=== PATIENT | female | born 1995 | race Caucasian/White ===

== ENCOUNTER 2016-11-19 15:10 | Emergency (ER) | payer BC, MEDICAID, OTHER ==
[~2016-11-19] VITALS: Ht 162.6 cm; Wt 74.3 kg
[~2016-11-19 15:10] MED LIST: IBUP800T23 PO
[2016-11-19 15:16] VITALS: BP 119/76; PULSE 80; RESP 16; TEMP 97.5; O2SAT 100
[2016-11-19 16:03] LABS: BLOOD, URINE NEG (NEG); GLUCOSE,URINE NEG (NEG); KETONE, URINE TRACE mg/dL (NEG); NITRITE,URINE NEG (NEG)
--- NOTE | 2016-11-19 16:10 | PD ---
HPI . Suprapubic pain Chief Complaint: Abdominal Pain Time Seen by Provider: 15:27 Travel History International Travel<30 days: No Contact w/Intl Traveler<30days: No Traveled to known affect area: No History of Present Illness HPI Patient presents with a 3 week history of suprapubic pain. She describes it as cramping similar to menstrual cramps. She rates at 4/10. She reports associated dyspareunia. She denies discharge. Urination exacerbates her symptoms. However, she does not have dysuria, frequency or urgency. [facility] Past Medical History Medical History: Denies Significant Hx Immunizations Current: Yes Tetanus Vaccination: Unknown Influenza Vaccination: No ?: Unknown LMP: 11/11/2016 Past Surgical History Surgical History: No Previous Surgery Social History Alcohol Use: No Tobacco Use: No Substance Use: Yes (MJ) Allergies-Medications (Allergen,Severity, Reaction): Coded Allergies: Codeine (Verified Adverse Reaction, Severe, Nausea/Vomiting, 11/19/16) Uncoded Allergies: SOME DETERGENTS (Adverse Reaction, Severe, 02/17/12) Reported Meds & Prescriptions Reported Meds & Active Scripts Active Ibuprofen 800 Mg Tab 800 Mg PO Q8 PRN Review of Systems Except as stated in HPI: all other systems reviewed are Neg General / Constitutional: No: Fever, Chills Gastrointestinal: Positive: Abdominal Pain, No: Nausea, Vomiting, Diarrhea Genitourinary: Positive: Pelvic Pain, Dyspareunia, No: Urgency, Frequency, Dysuria, Discharge, Vaginal Bleeding Physical Exam Narrative GENERAL: Awake and alert and in no acute distress. SKIN: Warm and dry. HEAD: Atraumatic. Normocephalic. EYES: Pupils equal and round. ENT: No nasal bleeding or discharge. Mucous membranes pink and moist. NECK: Trachea midline. CARDIOVASCULAR: Regular rate and rhythm. RESPIRATORY: No accessory muscle use. GASTROINTESTINAL: Abdomen soft. Mild suprapubic tenderness. No guarding or rebound. Nondistended. : Normal female external genitalia. Yellowish discharge from the cervical os. Os is closed. There is no cervical motion tenderness. No adnexal tenderness. She has some mild tenderness over the uterus. MUSCULOSKELETAL: No obvious deformities. No edema. NEUROLOGICAL: Awake and alert. No obvious cranial nerve deficits. Motor grossly within normal limits. Normal speech. PSYCHIATRIC: Appropriate mood and affect; insight and judgment normal. Data Data Last Documented VS Vital Signs Date Time Temp Pulse Resp B/P Pulse Ox O2 Delivery O2 Flow Rate FiO2 11/19/16 15:16 97.5 80 16 119/76 100 Orders Gc And Chlamydia Pcr (11/19/16 15:27) Wet Prep Profile (11/19/16 15:27) Ua Includes Microscopic (11/19/16 15:27) Ed Urine Pregnancytest Poc (11/19/16 15:27) Us Pelvis (Ques Pr/Ect)W Trans (11/19/16 15:50) Beta Hcg (Quant/Titer) (11/19/16 15:50) Labs Laboratory Tests Test 11/19/16 11/19/16 15:50 16:35 Urine Collection Type CLEAN CATCH Urine Color YELLOW Urine Turbidity CLEAR Urine pH 7.0 Urine Specific [place] 1.025 Urine Protein TRACE mg/dL Urine Glucose (UA) NEG mg/dL Urine Ketones TRACE mg/dL Urine Occult Blood NEG Urine Nitrite NEG Urine Bilirubin NEG Urine Leukocyte Esterase NEG Urine RBC 0-3 /hpf Urine WBC 0-2 /hpf Urine Squamous Epithelial 0-5 /hpf Cells Urine Collection Time 15:50 Clue Cells (Wet Prep) NONE SEEN Vaginal Trichomonas (Wet Prep) NONE SEEN Vaginal Yeast (Wet Prep) NONE SEEN Human Chorionic Gonadotropin, 366 MIU/ML Quant MDM Medical Decision Making Medical Screen Exam Complete: Yes Emergency Medical Condition: Yes Differential Diagnosis Differential diagnosis of pelvic pain includes but is not limited to UTI, PID, ectopic , spontaneous AB, constipation, viral illness Narrative Course Patient presents complaining with suprapubic pain for the last 3 weeks. Her bedside test is positive. A quantitative hCG and pelvic ultrasound have subsequently been ordered. UA and wet prep are negative. Quantitative hCG is only 366. Ultrasound would not be helpful at this point. Diagnosis Primary Impression: Pelvic pain Additional Impression: Qualified Code: Z3A.01 - Less than 8 weeks gestation of Additional Instructions: Follow-up in 2 days for repeat blood test Disposition: 01 DISCHARGE HOME Condition: Stable Janette Mendoza MD November 19, 2016 16:10
[2016-11-19 16:12] LABS: METHOD OF COLLECTION CLEAN CATCH; URINE COLOR YELLOW (YELLW/STRAW)
[2016-11-19 16:13] LABS: RBC, URINE 0-3 /hpf (0-3); SQUAMOUS EPITHELIAL CELL URINE 0-5 /hpf (0-5); WBC, URINE 0-2 /hpf (0-5)
[2016-11-19 17:02] LABS: BETA HCG QUANT 366 MIU/ML (0-5)
[2016-11-19 17:20] VITALS: BP 122/76; PULSE 88; RESP 16; O2SAT 98
[2016-11-19 18:46] LABS: CHLAMYDIA PCR NOT DETECTED (NOT DETECT); NEISSERIA PCR NOT DETECTED (NOT DETECT)
--- NOTE | 2016-11-19 19:05 | RADHPO ---
EXAM DATE/TIME: 11/19/2016 17:28 [facility] COMPARISON: No previous studies available for comparison. INDICATIONS : Pelvic pain with . LAB(S): Beta-hC MEDICAL HISTORY : . Plan B x 1 month ago. SURGICAL HISTORY : None. ENCOUNTER: Initial ACUITY: 1 day PAIN SCORE: 6/10 LOCATION: Bilateral pelvis MEASUREMENTS: UTERUS: 8.0 x 4.9 x 3.6 cm ENDOMETRIAL STRIPE: 5 mm RIGHT OVARY: 3.5 x 3.0 x 2.4 cm LEFT OVARY: 2.5 x 2.8 x 1.9 cm FREE FLUID: Yes Trace in right adnexa and posterior cul de sac. CROWN RUMP LENGTH: Non visualized. = WKS DAYS FHR: Non visualized. BPM FINDINGS: The uterus is empty in spite of the beta at 366. Right ovary is unremarkable The left ovary is unremarkable. Trace free fluid is evident. Yolk sac is not visualized. Small cervical nabothian cysts are noted. CONCLUSION: Empty uterus with trace free fluid in cul-de-sac in the beta of 366. Followup is suggested. Ectopic cannot be excluded.. Hunter Ballesteros MD FACR on November 19, 2016 at 19:00 Board Certified Radiologist. This report was verified electronically.
[2016-11-19 19:15] VITALS: BP 122/78
[2016-11-19 19:20] VITALS: BP 122/78; PULSE 88; RESP 16; O2SAT 98
== END 2016-11-19 19:15 | disposition home or self-care (01) ==
LOC: PHED 15:10
DX: O26.891 Other specified pregnancy related conditions, first trimester (principal); O99.321 Drug use complicating pregnancy, first trimester; R10.2 Pelvic and perineal pain; Z3A.01 Less than 8 weeks gestation of pregnancy
CPT/HCPCS: 76700; 76817; 81001; 84702; 84703; 87210; 87491; 87591

== ENCOUNTER 2016-11-21 11:50 | Emergency (ER) | payer MEDICAID, OTHER ==
[~2016-11-21] VITALS: Ht 162.6 cm; Wt 75.9 kg
[2016-11-21 11:51] VITALS: BP 117/64; PULSE 85; RESP 17; TEMP 98.5; O2SAT 100
[2016-11-21 12:41] LABS: BETA HCG QUANT 280 MIU/ML (0-5)
--- NOTE | 2016-11-21 13:05 | PD ---
HPI Chief Complaint: Related Problem Time Seen by Provider: 12:00 Travel History International Travel<30 days: No Contact w/Intl Traveler<30days: No Traveled to known affect area: No History of Present Illness HPI 20-year-old female presents to the emergency department for repeat hCG. She was evaluated in the emergency room on 11/19/16 for evaluation of pelvic pain. At that visit her urine was positive her hCG was 366. She reports she had 2 menstrual cycles in the month of October. According to the EMR her pelvic exam was essentially normal she had no cervical motion tenderness and had mild uterine tenderness. Her wet prep was negative. Her UA was negative. She was diagnosed with pelvic pain and instructed to return for repeat blood work today. She denies any complaint today's visit. [facility] Past Medical History Medical History: Denies Significant Hx Immunizations Current: Yes Tetanus Vaccination: > 5 Years Influenza Vaccination: No ?: Unknown LMP: ENDED 4 DAYS AGO Past Surgical History Surgical History: No Previous Surgery Social History Alcohol Use: No Tobacco Use: No Substance Use: Yes () Allergies-Medications (Allergen,Severity, Reaction): Coded Allergies: Codeine (Verified Adverse Reaction, Severe, Nausea/Vomiting, 11/21/16) Uncoded Allergies: SOME DETERGENTS (Adverse Reaction, Severe, 02/17/12) Reported Meds & Prescriptions Reported Meds & Active Scripts Active No Active Prescriptions or Reported Medications Review of Systems Except as stated in HPI: all other systems reviewed are Neg Physical Exam Narrative GENERAL: Well-nourished, well-developed patient. SKIN: Focused skin assessment warm/dry. HEAD: Normocephalic. EYES: No scleral icterus. No injection or drainage. NECK: Supple, trachea midline. No JVD or lymphadenopathy. CARDIOVASCULAR: Regular rate and rhythm without murmurs, gallops, or rubs. RESPIRATORY: Breath sounds equal bilaterally. No accessory muscle use. GASTROINTESTINAL: Abdomen soft, non-tender, nondistended. MUSCULOSKELETAL: No cyanosis, or edema. BACK: Nontender without obvious deformity. No CVA tenderness. Data Data Last Documented VS Vital Signs Date Time Temp Pulse Resp B/P Pulse Ox O2 Delivery O2 Flow Rate FiO2 11/21/16 11:51 98.5 85 17 117/64 100 Orders Beta Hcg (Quant/Titer) (11/21/16 12:12) Labs Laboratory Tests Test 11/21/16 12:15 Human Chorionic Gonadotropin, 280 MIU/ML Quant MDM Medical Decision Making Medical Screen Exam Complete: Yes Emergency Medical Condition: Yes Differential Diagnosis Ectopic ,Threatened miscarriage reevaluation Narrative Course 20-year-old female presents emergency department for repeat serum hCG. She was evaluated in the emergency room on 11/19/16 for evaluation of pelvic pain and . Her hCG at that point was 366. Her hCG today is 280. She has no complaint of abdominal pain no vaginal bleeding. Discussed case with Dr. HARMAN attending physician she agrees to patient's treatment plan and return in 2 days for repeat hCG since patient has no established [employer] for follow-up. Discussed at length with patient signs and symptoms of ectopic and the need for reevaluation in 2 days. She was instructed to return for another serum hCG. She was instructed to return prior should she develop abdominal pain , vaginal bleeding or any new complaint. Patient verbalizes understanding and confirms she will return should she develop any new symptoms. Diagnosis Primary Impression: Pelvic pain Referrals: Internal Medicine Physician Assistant Additional Instructions: Return to the emergency Department in 2 days for repeat hCG. Return prior if he develops abdominal pain or vaginal bleeding. Or any new or worsening symptom. Scripts No Active Prescriptions or Reported Meds Disposition: 01 DISCHARGE HOME Condition: Stable Crissy Ren November 21, 2016 13:05
== END 2016-11-21 13:27 | disposition home or self-care (01) ==
LOC: PHEFT 11:50
DX: R10.2 Pelvic and perineal pain (principal); Z88.5 Allergy status to narcotic agent
CPT/HCPCS: 84702; 99283

== ENCOUNTER 2016-11-23 13:48 | Emergency (ER) | payer MEDICAID, OTHER ==
[~2016-11-23] VITALS: Ht 162.6 cm; Wt 74.9 kg
[2016-11-23 13:49] VITALS: BP 96/68; PULSE 91; RESP 16; TEMP 97.5; O2SAT 98
--- NOTE | 2016-11-23 14:59 | PD ---
HPI Chief Complaint: Abnormal Results Time Seen by Provider: 14:50 Travel History International Travel<30 days: No Contact w/Intl Traveler<30days: No Traveled to known affect area: No History of Present Illness HPI 21-year-old female presents to the emergency room for evaluation of right lower quadrant pain for 4 weeks and repeat beta hCG. Patient came to the emergency room 4 days ago (11/19/16) for evaluation of RLQ abdominal pain at that time and was found to be in very early but ultrasound would not be of use. Pain fluctuates in severity but is constant. It feels like cramping and is exacerbated with urinating. Patient states it initially started after her normal 5 day period at the beginning of October but never went away; she had a second period at the end of October which ended about 5 days ago. She has been taking Motrin which helps a little bit. After finding out she was , she started taking Tylenol which doesn't help as much. She came to the emergency room 2 days after finding out she was (11/21/16) for repeat beta hCG which was declining at that time. She denies fever, chills, urgency, frequency, dysuria, vomiting, and diarrhea. Reports occasional nausea. She is not currently bleeding. PFSH Past Medical History Medical History: Denies Significant Hx Immunizations Current: Yes Tetanus Vaccination: < 5 Years Influenza Vaccination: No ?: LMP: 11/12/16 Past Surgical History Surgical History: No Previous Surgery Social History Alcohol Use: No Tobacco Use: No Substance Use: Yes (MJ) Allergies-Medications (Allergen,Severity, Reaction): Coded Allergies: Codeine (Verified Adverse Reaction, Severe, Nausea/Vomiting, 11/23/16) Uncoded Allergies: SOME DETERGENTS (Adverse Reaction, Severe, 11/23/16) . Reported Meds & Prescriptions Reported Meds & Active Scripts Active Tramadol (Tramadol HCl) 50 Mg Tab 50 Mg PO Q8H PRN Review of Systems Except as stated in HPI: all other systems reviewed are Neg Physical Exam Narrative GENERAL: Well-nourished, well-developed female in no acute distress. Afebrile. Ambulatory. SKIN: Focused skin assessment warm/dry. HEAD: Normocephalic. EYES: No scleral icterus. No injection or drainage. NECK: Supple, trachea midline. No JVD or lymphadenopathy. CARDIOVASCULAR: Regular rate and rhythm without murmurs, gallops, or rubs. RESPIRATORY: Breath sounds equal bilaterally. No accessory muscle use. GASTROINTESTINAL: Abdomen soft, nondistended. Positive bowel sounds. No hepato -splenomegaly, or palpable masses. No guarding. No CVA tenderness. Mild tenderness to palpation of the right lower quadrant region. Data Data Last Documented VS Vital Signs Date Time Temp Pulse Resp B/P Pulse Ox O2 Delivery O2 Flow Rate FiO2 11/23/16 20:23 Room Air 11/23/16 20:22 85 16 117/66 99 11/23/16 13:49 97.5 Orders Beta Hcg (Quant/Titer) (11/23/16 14:22) Complete Blood Count With Diff (11/23/16 15:20) Comprehensive Metabolic Panel (11/23/16 15:20) Urinalysis - C+S If Indicated (11/23/16 15:20) Ct Abd/Pel W Iv Contrast(Rout) (11/23/16 15:20) Iv Access Insert/Monitor (11/23/16 15:20) Ecg Monitoring (11/23/16 15:20) Oximetry (11/23/16 15:20) Sodium Chloride 0.9% Flush (Ns Flush) (11/23/16 15:30) Iohexol 350 Inj (Omnipaque 350 Inj) (11/23/16 15:59) Type And Screen (11/23/16 17:29) Us Pelvis (Ques Pr/Ect)W Trans (11/23/16 ) Labs Laboratory Tests Test 11/23/16 11/23/16 11/23/16 14:30 15:50 18:30 Human Chorionic Gonadotropin, 206 MIU/ML Quant White Blood Count 6.9 TH/MM3 Red Blood Count 4.27 MIL/MM3 Hemoglobin 11.0 GM/DL Hematocrit 34.3 % Mean Corpuscular Volume 80.3 FL Mean Corpuscular Hemoglobin 25.8 PG Mean Corpuscular Hemoglobin 32.1 % Concent Red Cell Distribution Width 14.6 % Platelet Count 496 TH/MM3 Mean Platelet Volume 7.9 FL Neutrophils (%) (Auto) 65.0 % Lymphocytes (%) (Auto) 22.7 % Monocytes (%) (Auto) 9.8 % Eosinophils (%) (Auto) 2.0 % Basophils (%) (Auto) 0.5 % Neutrophils # (Auto) 4.5 TH/MM3 Lymphocytes # (Auto) 1.6 TH/MM3 Monocytes # (Auto) 0.7 TH/MM3 Eosinophils # (Auto) 0.1 TH/MM3 Basophils # (Auto) 0.0 TH/MM3 CBC Comment DIFF FINAL Differential Comment Urine Color YELLOW Urine Turbidity CLEAR Urine pH 7.0 Urine Specific [place] 1.021 Urine Protein NEG mg/dL Urine Glucose (UA) NEG mg/dL Urine Ketones NEG mg/dL Urine Occult Blood NEG Urine Nitrite NEG Urine Bilirubin NEG Urine Leukocyte Esterase NEG Urine Squamous Epithelial 0-5 /hpf Cells Microscopic Urinalysis Comment CULT NOT INDICATED Sodium Level 142 MEQ/L Potassium Level 3.8 MEQ/L Chloride Level 106 MEQ/L Carbon Dioxide Level 30.5 MEQ/L Anion Gap 6 MEQ/L Blood Urea Nitrogen 11 MG/DL Creatinine 0.74 MG/DL Estimat Glomerular Filtration 100 ML/MIN Rate Random Glucose 73 MG/DL Calcium Level 9.0 MG/DL Total Bilirubin 0.4 MG/DL Aspartate Amino Transf 27 U/L (AST/SGOT) Alanine Aminotransferase 52 U/L (ALT/SGPT) Alkaline Phosphatase 42 U/L Total Protein 7.6 GM/DL Albumin 3.8 GM/DL Blood Type AB POSITIVE Antibody Screen NEGATIVE Blood Bank Comment MDM Medical Decision Making Medical Screen Exam Complete: Yes Emergency Medical Condition: Yes Medical Record Reviewed: Yes Differential Diagnosis Strain versus nephrolithiasis versus intra-abdominal pathology versus versus ectopic Narrative Course 21-year-old female presents to the emergency room for repeat beta hCG and right lower quadrant abdominal pain. Pain started several weeks ago with her period at the beginning of the month. It has not gone away. She came to the emergency room for days ago for evaluation and was found to be . Because patient was having abdominal pain and bleeding with , she was told to return to the ER in 2 days for repeat beta hCG. Ultrasound at that time was inconclusive. Repeat was declining. Patient was told to return in 2 days once again. She presents today with persistent right lower quadrant pain. She denies nausea, vomiting, or diarrhea. Physical exam reveals moderate tenderness to palpation of the right lower quadrant. No peritoneal signs. Because of inconclusive ultrasound, CT of the abdomen/pelvis was ordered. It shows possible ectopic with recommendation for repeat ultrasound. Repeat ultrasound shows a right adnexal mass. Repeat beta-hCG has continued to decline. CBC and CMP are unremarkable. UA is unremarkable. Vital signs stable. I spoke to my attending physician, Dr. Dean, who spoke to the OB hospitalist. It was recommended patient follow-up in 3 days for repeat beta and ultrasound. Patient was told to return for worsening symptoms. She understands and agrees to plan. Diagnosis Primary Impression: Pelvic pain Scripts Tramadol 50 Mg Tab50 Mg PO Q8H PRN (PAIN) #10 TAB Ref 0 Prov:David Dean MD 11/23/16 Disposition: 01 DISCHARGE HOME Condition: Stable Gilda Cooney November 23, 2016 14:59
[2016-11-23 15:00] LABS: BETA HCG QUANT 206 MIU/ML (0-5)
[2016-11-23] MEDS ORDERED: SODIUM CHLORIDE 0.9% FLUSH 10 ML FLUSH IV FLUSH PRN (15:30)
[2016-11-23 15:49] VITALS: RESP 16; O2SAT 99
[2016-11-23 15:57] LABS: AUTOMATED NEUTROPHIL # 4.5 TH/MM3 (1.8-7.7); BASOPHIL % 0.5 % (0.0-2.0); EOSINOPHIL # 0.1 TH/MM3 (0-0.4); HEMATOCRIT 34.3 % (35.0-46.0); HEMO FLAGS DIFF FINAL; LYMPH % 22.7 % (9.0-44.0); LYMPHOCYTE # 1.6 TH/MM3 (1.0-4.8); MEAN CELL VOLUME 80.3 FL (80.0-100.0); MEAN CORPUSCULAR HEMOGLOBIN 25.8 PG (27.0-34.0); MEAN CORPUSCULAR HGB CONC 32.1 % (32.0-36.0); MONO % 9.8 % (0.0-8.0); PLATELET COUNT 496 TH/MM3 (150-450); RED BLOOD COUNT 4.27 MIL/MM3 (4.00-5.30); RED CELL DISTRIBUTION WIDTH 14.6 % (11.6-17.2); WHITE BLOOD COUNT 6.9 TH/MM3 (4.0-11.0)
[2016-11-23 15:58] LABS: BLOOD, URINE NEG (NEG); GLUCOSE,URINE NEG (NEG); KETONE, URINE NEG (NEG); NITRITE,URINE NEG (NEG)
[2016-11-23] MEDS ORDERED: IOHEXOL 350 MG/ML 10 ML VIAL (for RAD DIAG) IV ONE (15:59)
[2016-11-23 16:05] LABS: CHLORIDE 106 MEQ/L (98-107); POTASSIUM 3.8 MEQ/L (3.5-5.1); SODIUM (NA) 142 MEQ/L (136-145)
[2016-11-23 16:07] LABS: URINE COLOR YELLOW (YELLW/STRAW)
[2016-11-23 16:08] LABS: COMMENT (UR) CULT NOT INDICATED; CULTURE IF INDICATED CULT NOT INDICATED; SQUAMOUS EPITHELIAL CELL URINE 0-5 /hpf (0-5)
[2016-11-23 16:09] LABS: ANION GAP 6 MEQ/L (5-15); BICARBONATE 30.5 MEQ/L (21.0-32.0); BLOOD UREA NITROGEN 11 MG/DL (7-18)
[2016-11-23 16:12] LABS: ALT (GPT) 52 U/L (9-42); AST (GOT) 27 U/L (16-38); GLOMERULAR FILTRATION RATE 100 ML/MIN (>89)
[2016-11-23 16:13] LABS: TOTAL BILIRUBIN ADULT 0.4 MG/DL (0.2-1.0)
[2016-11-23 16:15] LABS: ALKALINE PHOSPHATASE 42 U/L (45-117)
--- NOTE | 2016-11-23 16:42 | RADHPO ---
EXAM DATE/TIME: 11/23/2016 15:49 [facility] COMPARISON: US PELVIS (QUEST PREG/ECTOPIC) W/TRANSVAG, November 19, 2016, 17:28. INDICATIONS : Right lower quadrant pain. IV CONTRAST: 100 cc Omnipaque 350 (iohexol) IV ORAL CONTRAST: No oral contrast ingested. RADIATION DOSE: 13.00 CTDIvol (mGy) MEDICAL HISTORY : None SURGICAL HISTORY : None. ENCOUNTER: Initial ACUITY: 1 week PAIN SCALE: 4/10 LOCATION: Right lower quadrant abdomen TECHNIQUE: Volumetric scanning of the abdomen and pelvis was performed. Using automated exposure control and ad justment of the mA and/or kV according to patient size, radiation dose was kept as low as reasonably achievable to obtain optimal diagnostic quality images. FINDINGS: LOWER LUNGS: The visualized lower lungs are clear. LIVER: Homogeneous density without lesion. There is no dilation of the biliary tree. No calcified gallston es. SPLEEN: Normal size without lesion. PANCREAS: Within normal limits. KIDNEYS: Normal in size and shape. There is no mass, stone or hydronephrosis. ADRENAL GLANDS: Within normal limits. VASCULAR: There is no aortic aneurysm. BOWEL/MESENTERY: No evidence of bowel dilatation. No free air or free fluid. Appendix within normal limits. ABDOMINAL WALL: Within normal limits. RETROPERITONEUM: There is no lymphadenopathy. BLADDER: No wall thickening or mass. REPRODUCTIVE: 3.8 x 2.7 cm septated cystic area in the right adnexa. Intermediate density at the dependent portion of the pelvis may represent complex fluid/hemorrhagic material. Uterus and left ovary within normal l imits. INGUINAL: There is no lymphadenopathy or hernia. MUSCULOSKELETAL: Within normal limits for patient age. CONCLUSION: 1. Complex 3-4 cm cystic area in the right adnexa. This finding is not seen on the prior ultrasound. Recommend pelvic ultrasound for further evaluation. Possible complex fluid/hemorrhagic products in th e dependent portion of the pelvis could also be further evaluated on ultrasound. Findings could repre sent ectopic . 2. Appendix within normal limits. Paul Mallory MD on November 23, 2016 at 16:32 Board Certified Radiologist. This report was verified electronically.
[2016-11-23 18:29] VITALS: BP 120/62; PULSE 80; RESP 18; O2SAT 100
--- NOTE | 2016-11-23 19:11 | RADHPO ---
EXAM DATE/TIME: 11/23/2016 17:40 [facility] COMPARISON: US PELVIS (QUEST PREG/ECTOPIC) W/TRANSVAG, November 19, 2016, 17:28. INDICATIONS : Pelvic pain. LAB(S): Beta-hC MEDICAL HISTORY : . Pelvic pain. Plan B x 2. SURGICAL HISTORY : None. ENCOUNTER: Subsequent ACUITY: 1 month PAIN SCORE: 5/10 LOCATION: Bilateral pelvis MEASUREMENTS: UTERUS: 7.5 x 5.7 x 4.4 cm ENDOMETRIAL STRIPE: 1 mm RIGHT OVARY: 4.8 x 4.2 x 3.6 cm LEFT OVARY: 2.5 x 2.1 x 1.7 cm FREE FLUID: No CROWN RUMP LENGTH: Non visualized. = WKS DAYS FHR: Non visualized. BPM FINDINGS: UTERUS: The myometrium has homogeneous echotexture without mass. Uterus appears retroverted. A 5 mm nabothia n-type cyst. RIGHT OVARY: 4.1 x 3.0 x 2.8 cm complex cyst in the midpole of the right ovary. This may represent a hemorrhagic c orpus luteum LEFT OVARY: Ovary contains no mass or significant cystic lesion. MISCELLANEOUS: No free fluid. CONCLUSION: 1. 4.1 x 3.0 x 2.8 cm complex cyst in the midpole of the right ovary. No free fluid. 2. Retroverted uterus with a 5 mm nabothian cyst of the cervix. 3. Despite a positive beta-hCG, no gestational sac is identified. The beta hCG does appear to be fall ing, however. Chilango Bourgeois MD on November 23, 2016 at 19:03 Board Certified Radiologist. This report was verified electronically.
[2016-11-23 20:22] VITALS: BP 117/66; PULSE 85; RESP 16; O2SAT 99
--- NOTE | 2016-11-23 20:43 | PD ---
Data Data Last Documented VS Vital Signs Date Time Temp Pulse Resp B/P Pulse Ox O2 Delivery O2 Flow Rate FiO2 11/23/16 20:23 Room Air 11/23/16 20:22 85 16 117/66 99 11/23/16 13:49 97.5 Orders Beta Hcg (Quant/Titer) (11/23/16 14:22) Complete Blood Count With Diff (11/23/16 15:20) Comprehensive Metabolic Panel (11/23/16 15:20) Urinalysis - C+S If Indicated (11/23/16 15:20) Ct Abd/Pel W Iv Contrast(Rout) (11/23/16 15:20) Iv Access Insert/Monitor (11/23/16 15:20) Ecg Monitoring (11/23/16 15:20) Oximetry (11/23/16 15:20) Sodium Chloride 0.9% Flush (Ns Flush) (11/23/16 15:30) Iohexol 350 Inj (Omnipaque 350 Inj) (11/23/16 15:59) Type And Screen (11/23/16 17:29) Us Pelvis (Ques Pr/Ect)W Trans (11/23/16 ) Labs Laboratory Tests Test 11/23/16 11/23/16 11/23/16 14:30 15:50 18:30 Human Chorionic Gonadotropin, 206 MIU/ML Quant White Blood Count 6.9 TH/MM3 Red Blood Count 4.27 MIL/MM3 Hemoglobin 11.0 GM/DL Hematocrit 34.3 % Mean Corpuscular Volume 80.3 FL Mean Corpuscular Hemoglobin 25.8 PG Mean Corpuscular Hemoglobin 32.1 % Concent Red Cell Distribution Width 14.6 % Platelet Count 496 TH/MM3 Mean Platelet Volume 7.9 FL Neutrophils (%) (Auto) 65.0 % Lymphocytes (%) (Auto) 22.7 % Monocytes (%) (Auto) 9.8 % Eosinophils (%) (Auto) 2.0 % Basophils (%) (Auto) 0.5 % Neutrophils # (Auto) 4.5 TH/MM3 Lymphocytes # (Auto) 1.6 TH/MM3 Monocytes # (Auto) 0.7 TH/MM3 Eosinophils # (Auto) 0.1 TH/MM3 Basophils # (Auto) 0.0 TH/MM3 CBC Comment DIFF FINAL Differential Comment Urine Color YELLOW Urine Turbidity CLEAR Urine pH 7.0 Urine Specific [place] 1.021 Urine Protein NEG mg/dL Urine Glucose (UA) NEG mg/dL Urine Ketones NEG mg/dL Urine Occult Blood NEG Urine Nitrite NEG Urine Bilirubin NEG Urine Leukocyte Esterase NEG Urine Squamous Epithelial 0-5 /hpf Cells Microscopic Urinalysis Comment CULT NOT INDICATED Sodium Level 142 MEQ/L Potassium Level 3.8 MEQ/L Chloride Level 106 MEQ/L Carbon Dioxide Level 30.5 MEQ/L Anion Gap 6 MEQ/L Blood Urea Nitrogen 11 MG/DL Creatinine 0.74 MG/DL Estimat Glomerular Filtration 100 ML/MIN Rate Random Glucose 73 MG/DL Calcium Level 9.0 MG/DL Total Bilirubin 0.4 MG/DL Aspartate Amino Transf 27 U/L (AST/SGOT) Alanine Aminotransferase 52 U/L (ALT/SGPT) Alkaline Phosphatase 42 U/L Total Protein 7.6 GM/DL Albumin 3.8 GM/DL Blood Type AB POSITIVE Antibody Screen NEGATIVE Blood Bank Comment MDM Supervised Visit with MALENA: Yes Narrative Course The patient was initially evaluated by the previous provider Dr. Shannon and the PA. See PAs note for further details. I took over his he attending physician at 4:00 PM at the end of Dr. Shannon's shift. Briefly this is a 21-year-old female who is here for the third time in the past 4 days for evaluation of possible versus ectopic versus miscarriage. The patient was initially seen on 11/19/16 and had a beta hCG of 366 and a pelvic ultrasound that showed an empty uterus with free fluid in the cul-de-sac with follow-up recommended. She presented to the emergency department at that time because of pelvic pain and bleeding. She was seen in the emergency Department in 2 days ago and had repeat beta hCG of 280. She was told to return to the emergency Department in 2 days for another repeat beta hCG. She is here again today now complaining of right lower quadrant pain. Beta hCG today is 206. CT abdomen pelvis was ordered by the previous provider and shows a complex cyst in the right adnexa which was not seen on prior ultrasounds. These findings could represent ectopic and pelvic ultrasound was recommended. Pelvic ultrasound: CONCLUSION: 1. 4.1 x 3.0 x 2.8 cm complex cyst in the midpole of the right ovary. No free fluid. 2. Retroverted uterus with a 5 mm nabothian cyst of the cervix. 3. Despite a positive beta-hCG, no gestational sac is identified. The beta hCG does appear to be falling, however. Vital signs are within normal limits. CBC shows WBC 6.9, hemoglobin 11, hematocrit 34.3, platelets 496. CMP is unremarkable. UA is not suggestive of UTI, within normal limits. Blood type is AB+. Patient does have some mild right lower quadrant tenderness without peritoneal signs. Case discussed with on-call OB hospitalist Dr. Ambrocio who states that there is not enough evidence to diagnose an ectopic at this time. He certainly would not give methotrexate, nor would take the patient for laparoscopic procedure at this time. He recommends the patient return to the emergency Department in 3 days for repeat beta hCG as well as pelvic ultrasound. Patient was made aware of all findings and of plan. Both patient and the patient's mom verbalize understanding and agreement with plan. Diagnosis Primary Impression: Pelvic pain affecting in first trimester, antepartum Referrals: [employer] 3 days Additional Instruction: Return to the Emergency Department in 3 days for repeat beta hCG and pelvic ultrasound. Return to the Emergency Department sooner for worsening symptoms or any other concerns as discussed. Scripts Tramadol 50 Mg Tab50 Mg PO Q8H PRN (PAIN) #10 TAB Ref 0 Prov:David Dean MD 11/23/16 Disposition: 01 DISCHARGE HOME Condition: Stable David Dean MD November 23, 2016 20:43
[2016-11-23] MEDS ORDERED: TRAM50TA PO (20:58)
== END 2016-11-23 21:03 | disposition home or self-care (01) ==
LOC: PHEFT 13:48 → PHED 21:03
DX: O26.899 Other specified pregnancy related conditions, unspecified trimester (principal); R10.31 Right lower quadrant pain; O34.531 Maternal care for retroversion of gravid uterus, first trimester; R11.0 Nausea; Z88.5 Allergy status to narcotic agent; Z34.01 Encounter for supervision of normal first pregnancy, first trimester
CPT/HCPCS: 74177; 76700; 76817; 80053; 81001; 84702; 85025; 86850; 86900; 86901; 99285; Q9967

== ENCOUNTER 2016-11-27 14:41 | Emergency (ER) | payer OTHER ==
[~2016-11-27] VITALS: Ht 162.6 cm; Wt 73.0 kg
[~2016-11-27 14:41] MED LIST changes: -IBUP800T23 PO; +TRAM50TA PO
[2016-11-27 14:44] VITALS: BP 118/79; PULSE 70; RESP 16; TEMP 97.6; O2SAT 100
--- NOTE | 2016-11-27 15:27 | PD ---
Physical Exam Date Seen by Provider: Nov 27, 2016 Time Seen by Provider: 15:24 Narrative 21 y/o female patient here for recheck blood work for possible ectopic . Was seen at [place]. Denies Pain currently. Patients VS stable. Awaiting Bed Placement. Data Data Last Documented VS Vital Signs Date Time Temp Pulse Resp B/P Pulse Ox O2 Delivery O2 Flow Rate FiO2 11/27/16 14:44 97.6 70 16 118/79 100 Room Air [facility] Medical Record Reviewed: Yes Supervised Visit with MALENA: Yes Condition: Stable Chris Nolasco Nov 27, 2016 15:26
--- NOTE | 2016-11-27 16:09 | PD ---
HPI Chief Complaint: Abnormal Results Time Seen by Provider: 16:05 Travel History International Travel<30 days: No Contact w/Intl Traveler<30days: No Traveled to known affect area: No History of Present Illness HPI Patient comes back to the emergency department for repeat beta-HCG and ultrasound for ectopic . Patient was seen on the of last month and was told to come back to the emergency department 3 days for repeat ultrasound and BETA HCG TO RULE OUT ECTOPIC. PATIENT STATES SHE HAS MINIMAL CRAMPING PAIN SUPRAPUBIC INTERMITTENTLY AND OCCASIONAL SPOTTING. PATIENT DENIES ANY OTHER PAINS. DENIES ANY FEVER, CHEST PAIN, SHORTNESS OF BREATH, BACK PAIN, LOSS CHANGE IN BOWEL OR BLADDER, NAUSEA, OR VOMITING. PFSH Past Medical History Medical History: Denies Significant Hx Immunizations Current: Yes Social History Alcohol Use: Yes (occas. 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 Reported Meds & Prescriptions Reported Meds & Active Scripts Active Tramadol (Tramadol HCl) 50 Mg Tab 50 Mg PO Q8H PRN Review of Systems Except as stated in HPI: all other systems reviewed are Neg Physical Exam Narrative GENERAL: Well-developed, overly nourished, in no acute distress, and non-ill appearing. SKIN: Focused skin assessment warm and dry. HEAD: Atraumatic. Normocephalic. EYES: Pupils equal and round. EOMI. No scleral icterus. No injection or drainage. ENT: No nasal bleeding or discharge. Mucous membranes pink and moist. NECK: Trachea midline. Supple. No nuclear rigidity. RESPIRATORY: No accessory muscle use. No respiratory distress. GASTROINTESTINAL: Abdomen soft, non-tender, nondistended. Hepatic and splenic margins not palpable. Normal bowel sounds 4. No pulsatile mass. MUSCULOSKELETAL: No obvious deformities. No clubbing. No cyanosis. No edema. Full range of motion. NEUROLOGICAL: Awake and alert. No obvious cranial nerve deficits. Motor grossly within normal limits. Normal speech. PSYCHIATRIC: Appropriate mood and affect; insight and judgment normal. Data Data Last Documented VS Vital Signs Date Time Temp Pulse Resp B/P Pulse Ox O2 Delivery O2 Flow Rate FiO2 6/4/17 19:15 15 100 Room Air 11/27/16 19:14 69 116/64 11/27/16 14:44 97.6 Orders Beta Hcg (Quant/Titer) (11/27/16 16:03) Us Pelvis (Ques Pr/Ect)W Trans (11/27/16 ) Labs Laboratory Tests Test 11/27/16 16:35 Human Chorionic Gonadotropin, 97 MIU/ML Quant MDM Medical Decision Making Medical Screen Exam Complete: Yes Emergency Medical Condition: Yes Interpretation(s) Ultrasound a radiologist shows: 1. No gestational sac or ectopic seen 2. Minimally complex cyst right ovary has decreased in size from previous study. 3. There is a lesion in the posterior right cul-de-sac which looks similar to ovarian tissue measuring 3.3 x 1.8 x2.6 cm. This was seen previously and appears unchanged. Differential Diagnosis Ectopic , spontaneously miscarriage, completed miscarriage, ovarian cyst, other Narrative Course Patient presented for recheck of her beta hCG and repeat ultrasound as instructed on her last ER visit. Ultrasound was performed and there is no obvious evidence of a uterine or ectopic . Quantitative B- HcG continues to trend down and is now below 100. Patient appears stable and examined him follow up outpatient for any additional studies or testing needed. There is no RH incompatibility. There was no evidence to support colitis, diverticulitis, obstruction, abdominal or femoral herniation, volvulus, early appendicitis, or hernial incarceration or strangulation at this time. Patient in no obvious distress upon re-evaluation. All pertinent laboratory/ Radiology result(s) discussed with patient and her mother. Discussed patient with Dr. Mohan prior to discharge, who is in agreement with plan of care and disposition. Any questions/concerns in reference to patient diagnosis/condition discussed and clarified prior to patient's discharge. Reinforced sheer importance of close follow up with patient's primary physician or primary care clinic and/or OB. Instructed patient to return to ED immediately, if symptoms return/worsen. Pt showed understanding of above instructions. Further instructions and recommendations were detailed in discharge paperwork. Pt ambulated without difficulty out of ED at discharge. Diagnosis Primary Impression: Miscarriage Additional Impression: Ovarian cyst Patient Instructions: General Instructions, Miscarriage (ED), Ovarian Cyst (ED) Additional Instructions: Follow-up with your primary care physician and/or COM[employer]ER [employer] C[employer]ER this week for reevaluation. Return to the emergency department if symptoms get worse. Disposition: 01 DISCHARGE HOME Condition: Stable Abe Kaplan Nov 27, 2016 16:09
[2016-11-27 17:11] LABS: BETA HCG QUANT 97 MIU/ML (0-5)
[2016-11-27 19:14] VITALS: BP 116/64; PULSE 69; RESP 14; O2SAT 100
--- NOTE | 2016-11-27 19:27 | RADRPT ---
EXAM DATE/TIME: 11/27/2016 17:57 [facility] COMPARISON: No previous studies available for comparison. INDICATIONS : Follow up previous ultrasound. LAB(S): Beta-hC MEDICAL HISTORY : . Plan B x 2. SURGICAL HISTORY : None. ENCOUNTER: Subsequent ACUITY: 1 week PAIN SCORE: 0/10 LOCATION: Bilateral pelvis MEASUREMENTS: UTERUS: 6.8 x 5.6 x 4.6 cm ENDOMETRIAL STRIPE: 6 mm RIGHT OVARY: 5.3 x 4.2 x 3.3 cm LEFT OVARY: 2.4 x 2.4 x 1.6 cm FREE FLUID: None CROWN RUMP LENGTH: Non visualized. = WKS DAYS FHR: Non visualized. BPM FINDINGS: UTERUS: The myometrium has homogeneous echotexture without mass. Nabothian cyst. No gestational sac. RIGHT OVARY: minimally complex cyst right ovary measures 3.5 x 3.1 x 2.4 cm. LEFT OVARY: Ovary contains no mass or significant cystic lesion. MISCELLANEOUS: No free fluid. There is tissue in the right posterior cul-de-sac which looks similar to ovarian tissu e. This measures 3.3 x 1.8 x 2.6 cm. CONCLUSION: 1. No gestational sac or ectopic seen 2. Minimally complex cyst right ovary has decreased in size from previous study. 3. There is a lesion in the posterior right cul-de-sac which looks similar to ovarian tissue measurin g 3.3 x 1.8 x 2.6 cm. This was seen previously and appears unchanged. Jr Gomez MD on November 27, 2016 at 19:15 Board Certified Radiologist. This report was verified electronically.
== END 2016-11-27 20:01 | disposition home or self-care (01) ==
LOC: NEPD 14:41
DX: O03.9 Complete or unspecified spontaneous abortion without complication (principal); N83.201 Unspecified ovarian cyst, right side
CPT/HCPCS: 76700; 76817; 84702; 99284